=== PATIENT | female | born 1990 | race Two or more races ===

== ENCOUNTER 2017-04-18 04:43 | Inpatient (IN) | payer OTHER ==
[~2017-04-18] VITALS: Ht 149.9 cm; Wt 46.7 kg
[2017-04-18] VITALS (43 sets, daily range): BP systolic 79–145; BP diastolic 44–88
[2017-04-18] MEDS ORDERED: ALBUTEROL SULF 2.5 MG/0.5ML(0.5%) NEB SOLN ONE (04:44)
[2017-04-18] MEDS ORDERED: ALBUTEROL SULF 2.5 MG/0.5ML(0.5%) NEB SOLN NEB ONE (05:00)
[2017-04-18 05:08] LABS: Basophils # (auto) 0.1 uL; Basophils % (auto) 0.3 % (0.0-2.0); DEFINITIVE VIEW TRANSMISSION; Eosinophils # (auto) 1.4 uL; Eosinophils % (auto) 9.6 % (0.0-7.0); Hematocrit 46.9 % (36.0-46.0); Hemoglobin 15.6 g/dL (12.2-16.2); Lymphocytes # (auto) 3.4 uL; Mean Corpuscular Hgb Conc. 33.2 g/dL (32.0-36.0); Mean Corpuscular Volume 81.5 fL (80.0-100.0); Mean Platelet Volume 8.4 fL (7.4-10.4); Neutrophils # (auto) 8.8 uL; Neutrophils % (auto) 60.1 % (37.0-80.0); Platelet Count (auto) 301 10^3/uL (140-450); Red Cell Distribution Width 16.5 % (11.6-16.0); White Blood Cell 14.7 10^3/uL (4.4-10.8)
[2017-04-18] MEDS ORDERED: LORazepam 2MG/ML-1ML VIAL IV ONE (05:15)
[2017-04-18 05:25] LABS: INR 1.04 (0.9-1.15); Partial Thromboplastin Time 29.7 sec (22.64-33.71); Prothrombin Time 11.3 sec (9.37-12.3)
[2017-04-18 05:44] LABS: Albumin 3.5 g/dL (3.4-5.0); Alkaline Phosphatase 151 U/L (45-117); Anion Gap 6 (5-15); Aspartate Aminotransferase 32 U/L (15-37); BUN/Creatinine Ratio 21.3; Bilirubin, Total 1.1 mg/dL (0.2-1.0); Blood Urea Nitrogen 16 mg/dL (7-18); Calcium 8.1 mg/dL (8.5-10.1); Carbon Dioxide 28 mmol/L (21-32); Chloride 106 mmol/L (98-107); GFR African American 119 mL/min; GFR Non-African American 99 mL/min; Glucose 91 mg/dL (74-106); Magnesium 2.4 mg/dL (1.6-2.6); Potassium 4.4 mmol/L (3.5-5.1); Sodium 140 mmol/L (136-145); Total Protein 7.4 g/dL (6.4-8.2)
[2017-04-18 05:47] LABS: Urine Bilirubin Negative (Negative); Urine Blood Negative /uL (Negative); Urine Color Yellow (Yellow); Urine Glucose Normal (Normal); Urine Ketone Negative (Negative); Urine Nitrite Negative (Negative); Urine RBC 1 /hpf (0 - 4); Urine Squamous Epithelial Cell FEW /hpf (<5); Urine Urobilinogen Normal (Negative); Urine pH 5.5 (5.0-8.0)
[2017-04-18] MEDS ORDERED: HYDROcodone-ACET 5/325MG TAB PO PRN (08:45)
[2017-04-18] MEDS ORDERED: MORPHINE SULF INJ 2 MG/ML SYRINGE 1ML IV PRN (08:45)
[2017-04-18] MEDS ORDERED: LORazepam 0.5 MG TAB PO PRN (08:45)
[2017-04-18] MEDS ORDERED: ACETAMINOPHEN 500 MG TAB PO PRN (08:45)
[2017-04-18] MEDS ORDERED: NITROGLYCERIN 0.4 MG SL TAB SL PRN (08:45)
[2017-04-18] MEDS ORDERED: TEMAZEPAM 15 MG CAP PO PRN (08:45)
[2017-04-18] MEDS: FAMOTIDINE (10MG/ML) 2ML VL IV SCH ×2 (08:45→21:11)
[2017-04-18] MEDS ORDERED: ALBUTEROL SULF 2.5 MG/0.5ML(0.5%) NEB SOLN NEB PRN (08:45)
[2017-04-18] MEDS: cefTRIAXone 1GM/50ML D5W 50 ML IV SCH (09:00)
[2017-04-18] MEDS ORDERED: IOHEXOL 350 MG/ML 100ML IJ ONE (09:01)
[2017-04-18 09:18] LABS: Allen Test Yes; Base Excess -4.2 mmol/L (-2.0-2.0); Blood 02Sat 97.9 % (96-100); Blood COHb 0.3 % (0.5-1.5); Blood MetHb 0.3 % (0.0-1.5); HCO3 23.2 mmol/L (22-26.0); HHb 2.1 % (0.0-5.0); MODE NASAL CANNULA; O2Hb 97.3 % (94.0-97.0); PCO2 51.1 mmHg (35.0-45.0); PCO2(T) 51.1 mmHg (35.0-45.0); PO2 150.7 mmHg (80.0-100.0); PO2(T) 150.7 mmHg (80.0-100.0); Room 1009-ERT; Sample Type Arterial; pH 7.274 (7.350-7.450)
[2017-04-18] MEDS: AZITHROMYCIN 500MG/D5W 250ML 250 ML IV SCH (09:46)
[2017-04-18] MEDS ORDERED: LORazepam 2MG/ML-1ML VIAL ONE (10:49)
[2017-04-18] MEDS ORDERED: ETOMIDATE (2MG/ML) 20ML VIAL IV ONE ×2 (11:12→11:24)
[2017-04-18] MEDS ORDERED: SUCCINYLCHOLINE CHLORIDE 20 MG/ML 10ML VIAL IV ONE ×2 (11:13→11:24)
[2017-04-18] MEDS ORDERED: methylPREDNISolone SOD SUCC 125 MG/2 ML VL ONE (11:18)
[2017-04-18] MEDS ORDERED: methylPREDNISolone SOD SUCC 125 MG/2 ML VL IV ONE (11:30)
[2017-04-18] MEDS: MIDAZOLAM DRIP 100 mg/100mL NS 100 ML IV SCH ×3 (11:48→23:47)
[2017-04-18] MEDS: methylPREDNISolone SOD SUCC 40 MG/ML VL IV SCH ×3 (12:00→23:35)
[2017-04-18] MEDS: SODIUM CHLORIDE 0.9% 1,000 ML IV SCH ×2 (12:03→21:14)
[2017-04-18] MEDS ORDERED: LORazepam 2MG/ML-1ML VIAL IV PRN (12:15)
[2017-04-18] MEDS: PROPOFOL 100 ML IV SCH ×2 (12:15→23:38)
[2017-04-18 12:55] LABS: Base Excess -6.2 mmol/L (-2.0-2.0); Blood 02Sat 89.8 % (96-100); Blood COHb 0.5 % (0.5-1.5); Blood MetHb 0.3 % (0.0-1.5); HCO3 21.2 mmol/L (22-26.0); HHb 10.1 % (0.0-5.0); MODE VENT - A/C; O2Hb 89.1 % (94.0-97.0); PO2 69.8 mmHg (80.0-100.0); PO2(T) 69.8 mmHg (80.0-100.0); Room 1009-ERT; Sample Type Arterial; pH 7.253 (7.350-7.450)
[2017-04-18] MEDS: NOREPINEPHRINE BITARTRATE 250 ML IV SCH (14:30)
[2017-04-18] MEDS ORDERED: CLINDAMYCIN 600MG IV 50 ML IV ONE (15:30)
[2017-04-18] MEDS ORDERED: AZITHROMYCIN 500MG/D5W 250ML 250 ML IV ONE (15:30)
[2017-04-18] MEDS ORDERED: cefTRIAXone 1GM/50ML D5W 50 ML IV ONE (15:30)
[2017-04-18] MEDS: ALBUTEROL SULF 2.5 MG/0.5ML(0.5%) NEB SOLN NEB SCH ×2 (18:20→23:40)
[2017-04-18] MEDS: CLINDAMYCIN 600MG IV 50 ML IV SCH (21:14)
[2017-04-18] MEDS ORDERED: DOPamine 1600MCG/ML 250 ML IV SCH (22:26)
[2017-04-19] VITALS (97 sets, daily range): BP systolic 95–125; BP diastolic 53–80
[2017-04-19 00:02] LABS: Base Excess -2.5 mmol/L (-2.0-2.0); Blood 02Sat 94.7 % (96-100); Blood COHb 0.8 % (0.5-1.5); Blood MetHb 0.2 % (0.0-1.5); HCO3 21.1 mmol/L (22-26.0); HHb 5.2 % (0.0-5.0); MODE VENT - A/C; O2Hb 93.8 % (94.0-97.0); PCO2 33.1 mmHg (35.0-45.0); PCO2(T) 33.1 mmHg (35.0-45.0); PO2 83.7 mmHg (80.0-100.0); PO2(T) 83.7 mmHg (80.0-100.0); Sample Type Arterial; pH 7.423 (7.350-7.450)
[2017-04-19 04:07] LABS: Hematocrit 39.1 % (36.0-46.0); Hemoglobin 13.1 g/dL (12.2-16.2); Mean Corpuscular Hemoglobin 27.5 pg (28.0-32.0); Mean Corpuscular Hgb Conc. 33.5 g/dL (32.0-36.0); Mean Platelet Volume 9.1 fL (7.4-10.4); Platelet Count (auto) 252 10^3/uL (140-450); Red Cell Distribution Width 16.4 % (11.6-16.0); SUSPECT VIEW TRANSMISSION; White Blood Cell 27.1 10^3/uL (4.4-10.8)
[2017-04-19 04:14] LABS: Metamyelocytes % 0; Myelocytes % 0; Promyelocytes % 0; Reactive Lymphocytes 0
[2017-04-19 04:59] LABS: Hypersegmented Neutrophils Present; Platelet Estimate Adequate; RBC Morphology Normal
[2017-04-19] MEDS: CLINDAMYCIN 600MG IV 50 ML IV SCH (05:22)
[2017-04-19] MEDS: methylPREDNISolone SOD SUCC 40 MG/ML VL IV SCH ×4 (05:22→23:30)
[2017-04-19] MEDS: MIDAZOLAM DRIP 100 mg/100mL NS 100 ML IV SCH ×4 (05:28→23:40)
[2017-04-19] MEDS: ALBUTEROL SULF 2.5 MG/0.5ML(0.5%) NEB SOLN NEB SCH ×3 (06:15→18:14)
[2017-04-19 07:57] LABS: Allen Test Yes; Base Excess -2.1 mmol/L (-2.0-2.0); Blood 02Sat 90.5 % (96-100); Blood COHb 0.7 % (0.5-1.5); Blood MetHb 0.3 % (0.0-1.5); HCO3 22.8 mmol/L (22-26.0); HHb 9.4 % (0.0-5.0); MODE VENT - A/C; O2Hb 89.6 % (94.0-97.0); PCO2 39.5 mmHg (35.0-45.0); PCO2(T) 39.5 mmHg (35.0-45.0); PO2 63.7 mmHg (80.0-100.0); PO2(T) 63.7 mmHg (80.0-100.0); Sample Type Arterial; pH 7.379 (7.350-7.450)
[2017-04-19 08:01] LABS: Albumin 2.5 g/dL (3.4-5.0); BUN/Creatinine Ratio 14.3; Calcium 7.7 mg/dL (8.5-10.1); Potassium 4.2 mmol/L (3.5-5.1)
[2017-04-19 08:04] LABS: Bilirubin, Total 0.8 mg/dL (0.2-1.0); Total Protein 5.8 g/dL (6.4-8.2)
[2017-04-19] MEDS: FAMOTIDINE (10MG/ML) 2ML VL IV SCH ×2 (09:26→20:18)
[2017-04-19] MEDS: cefTRIAXone 1GM/50ML D5W 50 ML IV SCH (09:27)
[2017-04-19] MEDS: AZITHROMYCIN 500MG/D5W 250ML 250 ML IV SCH (10:57)
[2017-04-19] MEDS: NOREPINEPHRINE BITARTRATE 250 ML IV SCH (11:23)
[2017-04-19] MEDS: SODIUM CHLORIDE 0.9% 1,000 ML IV SCH ×2 (11:30→23:41)
[2017-04-19] MEDS ORDERED: DEXTROSE (50%) 50ML SYRG IV PRN (13:15)
[2017-04-19] MEDS ORDERED: VANCOMYCIN PER PHARMACY 0 MG IV SCH (13:15)
[2017-04-19] MEDS ORDERED: PIPERACILLIN-TAZOB 3.375GM 100 ML IV ONE (13:30)
[2017-04-19 14:07] LABS: Calcium 8.1 mg/dL (8.5-10.1); Potassium 4.1 mmol/L (3.5-5.1)
[2017-04-19] MEDS ORDERED: VANCOMYCIN 500 MG in D5W 5% 100 ML IV SCH (16:00)
[2017-04-19] MEDS: PROPOFOL 100 ML IV SCH ×2 (16:23→23:40)
[2017-04-19] MEDS: ACCU-CHEK COMFORT CURVE STRIP VI SCH ×2 (17:29→23:30)
[2017-04-19] MEDS: InsuLIN REG 1unit/0.01ml Soln (100units/ml) SC SCH ×2 (17:29→23:31)
[2017-04-19] MEDS: VANCOMYCIN 500 MG in D5W 5% 100 ML IV SCH (17:29)
[2017-04-19] MEDS: PIPERACILLIN-TAZOB 3.375GM 100 ML IV SCH (20:18)
[2017-04-19] MEDS: PROMETHAZINE HCL 25 MG/ML 1ML IV PRN (22:43)
[2017-04-20] VITALS (105 sets, daily range): BP systolic 92–138; BP diastolic 38–106
[2017-04-20] MEDS: ALBUTEROL SULF 2.5 MG/0.5ML(0.5%) NEB SOLN NEB SCH ×6 (00:17→22:14)
[2017-04-20] MEDS: PIPERACILLIN-TAZOB 3.375GM 100 ML IV SCH ×4 (01:38→21:13)
[2017-04-20 03:46] LABS: Hemoglobin 12.7 g/dL (12.2-16.2); Mean Corpuscular Hemoglobin 27.4 pg (28.0-32.0); Mean Corpuscular Hgb Conc. 33.4 g/dL (32.0-36.0); Mean Platelet Volume 8.8 fL (7.4-10.4); Platelet Count (auto) 244 10^3/uL (140-450); Red Cell Distribution Width 16.9 % (11.6-16.0); White Blood Cell 23.2 10^3/uL (4.4-10.8)
[2017-04-20 03:51] LABS: Metamyelocytes % 0; Myelocytes % 0; Promyelocytes % 0; Reactive Lymphocytes 0
[2017-04-20 04:12] LABS: BUN/Creatinine Ratio 22.4; Calcium 7.8 mg/dL (8.5-10.1); Potassium 3.8 mmol/L (3.5-5.1)
[2017-04-20 04:16] LABS: Hypersegmented Neutrophils Present; Platelet Estimate Adequate
[2017-04-20] MEDS: MIDAZOLAM DRIP 100 mg/100mL NS 100 ML IV SCH (05:40)
[2017-04-20] MEDS: methylPREDNISolone SOD SUCC 40 MG/ML VL IV SCH ×3 (05:40→18:10)
[2017-04-20] MEDS: ACCU-CHEK COMFORT CURVE STRIP VI SCH ×3 (05:40→18:10)
[2017-04-20] MEDS: VANCOMYCIN 500 MG in D5W 5% 100 ML IV SCH ×2 (05:40→18:10)
[2017-04-20] MEDS: InsuLIN REG 1unit/0.01ml Soln (100units/ml) SC SCH ×3 (05:41→18:00)
[2017-04-20 06:29] LABS: Base Excess -0.6 mmol/L (-2.0-2.0); Blood 02Sat 96.4 % (96-100); Blood COHb 0.5 % (0.5-1.5); Blood MetHb 0.2 % (0.0-1.5); HCO3 22.7 mmol/L (22-26.0); HHb 3.6 % (0.0-5.0); MODE VENT - A/C; O2Hb 95.7 % (94.0-97.0); PCO2 33.3 mmHg (35.0-45.0); PCO2(T) 33.3 mmHg (35.0-45.0); PO2 92.1 mmHg (80.0-100.0); PO2(T) 92.1 mmHg (80.0-100.0); Sample Type Arterial; pH 7.451 (7.350-7.450)
[2017-04-20] MEDS: FAMOTIDINE (10MG/ML) 2ML VL IV SCH ×2 (07:57→21:13)
[2017-04-20] MEDS ORDERED: IPRATROPIUM BROM 0.5 MG/2.5ML INH SOL NEB ONE (08:30)
[2017-04-20] MEDS: MORPHINE SULF INJ 2 MG/ML SYRINGE 1ML IV PRN (08:40)
[2017-04-20] MEDS: NOREPINEPHRINE BITARTRATE 250 ML IV SCH (11:23)
[2017-04-20] MEDS: BUDESONIDE (INHALATION) 0.5 MG/2 ML NEB NEB SCH ×2 (12:00→18:11)
[2017-04-20] MEDS: DEXMEDETOMIDINE HCL 400 MCG in SODIUM CHL 0.9% 96 ML IV SCH (12:18)
[2017-04-20] MEDS ORDERED: BUDESONIDE (INHALATION) 0.5 MG/2 ML NEB NEB SCH (14:00)
[2017-04-20] MEDS: SODIUM CHLORIDE 0.9% 1,000 ML IV SCH (14:02)
[2017-04-20] MEDS: IPRATROPIUM BROM 0.5 MG/2.5ML INH SOL NEB PRN ×3 (14:35→22:13)
[2017-04-21] VITALS (73 sets, daily range): BP systolic 102–151; BP diastolic 61–99
[2017-04-21] MEDS: PROPOFOL 100 ML IV SCH (00:15)
[2017-04-21] MEDS: MORPHINE SULF INJ 2 MG/ML SYRINGE 1ML IV PRN (00:30)
[2017-04-21] MEDS: PIPERACILLIN-TAZOB 3.375GM 100 ML IV SCH ×4 (01:34→20:50)
[2017-04-21] MEDS: ALBUTEROL SULF 2.5 MG/0.5ML(0.5%) NEB SOLN NEB SCH ×5 (02:07→18:11)
[2017-04-21] MEDS: IPRATROPIUM BROM 0.5 MG/2.5ML INH SOL NEB PRN ×4 (02:08→14:48)
[2017-04-21] MEDS: SODIUM CHLORIDE 0.9% 1,000 ML IV SCH (03:22)
[2017-04-21 04:12] LABS: BUN/Creatinine Ratio 36.4; Calcium 7.6 mg/dL (8.5-10.1); Potassium 3.8 mmol/L (3.5-5.1)
[2017-04-21] MEDS: ACCU-CHEK COMFORT CURVE STRIP VI SCH ×5 (05:36→23:46)
[2017-04-21] MEDS: methylPREDNISolone SOD SUCC 40 MG/ML VL IV SCH ×5 (05:36→23:45)
[2017-04-21] MEDS: InsuLIN REG 1unit/0.01ml Soln (100units/ml) SC SCH ×5 (05:36→23:46)
[2017-04-21] MEDS: VANCOMYCIN 500 MG in D5W 5% 100 ML IV SCH (05:36)
[2017-04-21] MEDS: DEXMEDETOMIDINE HCL 400 MCG in SODIUM CHL 0.9% 96 ML IV SCH (06:38)
[2017-04-21 08:00] LABS: Allen Test Yes; Base Excess 0.9 mmol/L (-2.0-2.0); Blood 02Sat 97.1 % (96-100); Blood COHb 0.2 % (0.5-1.5); Blood MetHb 0.2 % (0.0-1.5); HCO3 24.6 mmol/L (22-26.0); HHb 2.9 % (0.0-5.0); IE RATIO 1.3.8; MODE VENT - A/C; O2Hb 96.7 % (94.0-97.0); PCO2 36.3 mmHg (35.0-45.0); PCO2(T) 36.3 mmHg (35.0-45.0); PIP 21; PO2 105.6 mmHg (80.0-100.0); PO2(T) 105.6 mmHg (80.0-100.0); Sample Type Arterial; Spont Vt 424; pH 7.449 (7.350-7.450)
[2017-04-21] MEDS: FAMOTIDINE (10MG/ML) 2ML VL IV SCH ×2 (08:31→20:50)
[2017-04-21 08:52] LABS: Allen Test Yes; Base Excess 0.5 mmol/L (-2.0-2.0); Blood 02Sat 97.3 % (96-100); Blood COHb 0.8 % (0.5-1.5); Blood MetHb 0.1 % (0.0-1.5); HCO3 24.4 mmol/L (22-26.0); HHb 2.7 % (0.0-5.0); MODE VENT - CPAP; O2Hb 96.4 % (94.0-97.0); PO2 120.2 mmHg (80.0-100.0); PO2(T) 120.2 mmHg (80.0-100.0); Pressure Support 8; Sample Type Arterial; Spont Vt 443; pH 7.437 (7.350-7.450)
[2017-04-21] MEDS: BUDESONIDE (INHALATION) 0.5 MG/2 ML NEB NEB SCH ×2 (09:25→20:29)
[2017-04-21] MEDS: MIDAZOLAM DRIP 100 mg/100mL NS 100 ML IV SCH (11:23)
[2017-04-21] MEDS ORDERED: THROAT LOZENGES(CEPASTAT) MT PRN (16:45)
[2017-04-21] MEDS: VANCOMYCIN 1GM/250ML D5W 250 ML IV SCH (18:10)
[2017-04-22] MEDS: PIPERACILLIN-TAZOB 3.375GM 100 ML IV SCH ×2 (01:38→08:58)
[2017-04-22 05:02] VITALS: BP 108/74
[2017-04-22] MEDS: methylPREDNISolone SOD SUCC 40 MG/ML VL IV SCH ×3 (05:54→18:25)
[2017-04-22] MEDS: ACCU-CHEK COMFORT CURVE STRIP VI SCH ×3 (05:54→18:26)
[2017-04-22] MEDS: VANCOMYCIN 1GM/250ML D5W 250 ML IV SCH (05:54)
[2017-04-22] MEDS: InsuLIN REG 1unit/0.01ml Soln (100units/ml) SC SCH ×3 (05:55→18:00)
[2017-04-22] MEDS: ALBUTEROL SULF 2.5 MG/0.5ML(0.5%) NEB SOLN NEB SCH ×4 (06:01→18:13)
[2017-04-22] MEDS: IPRATROPIUM BROM 0.5 MG/2.5ML INH SOL NEB PRN ×3 (06:02→18:13)
[2017-04-22] MEDS: BUDESONIDE (INHALATION) 0.5 MG/2 ML NEB NEB SCH ×2 (06:02→18:14)
[2017-04-22] MEDS: FAMOTIDINE (10MG/ML) 2ML VL IV SCH ×2 (08:58→20:45)
[2017-04-22 09:00] VITALS: BP 118/86
[2017-04-22] MEDS: MIDAZOLAM DRIP 100 mg/100mL NS 100 ML IV SCH (11:22)
[2017-04-22] MEDS ORDERED: cefTRIAXone 1GM/50ML D5W 50 ML IV ONE (12:00)
[2017-04-22] MEDS ORDERED: FLUCONAZOLE 200MG/100ML 100 ML IV ONE (12:30)
[2017-04-22 13:00] VITALS: BP 110/76
[2017-04-22] MEDS: PROMETHAZINE HCL 25 MG/ML 1ML IV PRN (16:28)
[2017-04-22 17:00] VITALS: BP 121/84
[2017-04-22] MEDS ORDERED: PRE1T PO (17:45)
[2017-04-22] MEDS ORDERED: ALBUAER3 IN (17:45)
[2017-04-22 21:30] VITALS: BP 103/68
[2017-04-22] MEDS: MORPHINE SULF INJ 2 MG/ML SYRINGE 1ML IV PRN (22:22)
[2017-04-23] MEDS: methylPREDNISolone SOD SUCC 40 MG/ML VL IV SCH ×3 (00:12→12:00)
[2017-04-23] MEDS: ACCU-CHEK COMFORT CURVE STRIP VI SCH ×3 (00:12→12:00)
[2017-04-23] MEDS: InsuLIN REG 1unit/0.01ml Soln (100units/ml) SC SCH ×3 (00:12→12:00)
[2017-04-23 05:00] VITALS: BP 122/80
[2017-04-23] MEDS: ALBUTEROL SULF 2.5 MG/0.5ML(0.5%) NEB SOLN NEB SCH ×3 (06:00→11:58)
[2017-04-23] MEDS: MORPHINE SULF INJ 2 MG/ML SYRINGE 1ML IV PRN ×2 (06:18→11:09)
[2017-04-23 06:19] LABS: Basophils # (auto) 0 uL; Basophils % (auto) 0.1 % (0.0-2.0); Eosinophils # (auto) 0 uL; Hematocrit 38.8 % (36.0-46.0); Hemoglobin 12.9 g/dL (12.2-16.2); Lymphocytes # (auto) 0.6 uL; Mean Corpuscular Hemoglobin 27.5 pg (28.0-32.0); Mean Corpuscular Hgb Conc. 33.3 g/dL (32.0-36.0); Mean Corpuscular Volume 82.7 fL (80.0-100.0); Mean Platelet Volume 9.1 fL (7.4-10.4); Monocytes # (auto) 0.2 uL; Monocytes % (auto) 1.7 % (0.0-12.0); Neutrophils # (auto) 13.5 uL; Neutrophils % (auto) 94.2 % (37.0-80.0); Platelet Count (auto) 237 10^3/uL (140-450); Red Cell Distribution Width 16.4 % (11.6-16.0); White Blood Cell 14.4 10^3/uL (4.4-10.8)
[2017-04-23] MEDS: BUDESONIDE (INHALATION) 0.5 MG/2 ML NEB NEB SCH (06:37)
[2017-04-23 08:30] VITALS: BP 122/70
[2017-04-23] MEDS ORDERED: cefTRIAXone 1GM/50ML D5W 50 ML IV SCH (09:00)
[2017-04-23] MEDS: FAMOTIDINE (10MG/ML) 2ML VL IV SCH (09:50)
[2017-04-23] MEDS ORDERED: FLUCONAZOLE 200MG/100ML 100 ML IV SCH (10:00)
[2017-04-23 11:07] VITALS: BP 120/81
[2017-04-23 12:00] VITALS: BP 122/82
[2017-04-23 12:10] VITALS: BP 120/81
[2027-04-18] MEDS ORDERED: LORazepam 2MG/ML-1ML VIAL IV ONE (04:41)
== END 2017-04-23 13:54 | disposition home or self-care (01) | DRG 720 ==
LOC: ER 04:43 → TELE 04:44 → ICU WEST 14:20 → DOU IN ICU 04-20 18:30 → ICU WEST 04-20 19:13 → TELE-CENTR 04-21 17:17 → CENTRAL 04-23 05:44
PROVIDERS: ADMIT Internal Medicine; ATTEND Internal Medicine
PROC: 5A1945Z Respiratory Ventilation, 24-96 Consecutive Hours (ICD-10-PCS; principal; 2017-04-18)
PROC: 0BH17EZ Insertion of Endotracheal Airway into Trachea, Via Natural or Artificial Opening (ICD-10-PCS; 2017-04-18)
PROC: 5A09357 Assistance with Respiratory Ventilation, Less than 24 Consecutive Hours, Continuous Positive Airway Pressure (ICD-10-PCS; 2017-04-18)
DX: A41.9 Sepsis, unspecified organism (principal); R65.21 Severe sepsis with septic shock; J69.0 Pneumonitis due to inhalation of food and vomit; J96.02 Acute respiratory failure with hypercapnia; J96.01 Acute respiratory failure with hypoxia; K22.0 Achalasia of cardia; J45.901 Unspecified asthma with (acute) exacerbation; K22.8 Other specified diseases of esophagus; N39.0 Urinary tract infection, site not specified; E11.9 Type 2 diabetes mellitus without complications; F15.10 Other stimulant abuse, uncomplicated; F41.9 Anxiety disorder, unspecified; T38.0X5A Adverse effect of glucocorticoids and synthetic analogues, initial encounter; Z87.01 Personal history of pneumonia (recurrent); Z79.899 Other long term (current) drug therapy
CPT/HCPCS: 31500; 36415; 36600; 51702; 71010; 71020; 71275; 80048; 80053; 80202; 80307; 81001; 81025; 82805; 82962; 83036; 83605; 83735; 84484; 85007; 85025; 85027; 85379; 85610; 85652; 85730; 87040; 87070; 87081; 87086; 87088; 87186; 87205; 93005; 94002; 94003; 94640; 94644; 94660; 96374; 96375; 97001; 99291; J0330; J0696; J1450; J1815; J2543; J2704; J3490; J7060